=== PATIENT | female | born 1995 | race Caucasian/White ===

== ENCOUNTER 2016-06-15 01:58 | Emergency (ER) | payer OTHER ==
[2016-06-15] MEDS ORDERED: ONDANSETRON HCL/PF 2 MG/ML VIAL IV ONE (02:17)
[2016-06-15] MEDS ORDERED: FAMOTIDINE 10 MG/ML VIAL IV ONE ×2 (02:17→02:22)
[2016-06-15] MEDS ORDERED: NORMAL SALINE 2,000 ML IV ONE (02:17)
[2016-06-15] MEDS ORDERED: SUCRALFATE 1 G/10 ML UDC PO ONE (02:18)
[2016-06-15] MEDS ORDERED: ONDANSETRON HCL/PF 2 MG/ML VIAL ONE (02:21)
--- NOTE | 2016-06-15 02:23 | ERNOTE ---
Medical Problem HPI - Narrative Date of Service: 06/15/16 - General Chief Complaint: Nausea/Vomiting Time Seen by Provider: 06/15/16 02:14 Source: patient Exam Limitations: no limitations - Immun/Allergies/Home Medications Immunizations: IMMUNIZATION HX Immunizations Up to Date No History of Influenza Vaccine No Hx Pneumococcal Vaccination No Allergies/Adverse Reactions: Allergies No Known Drug Allergies Allergy (Verified 06/15/16 02:08) Home Medications: HOME MEDICATIONS Famotidine [Pepcid AC] 20 mg PO DAILY #30 tab 06/15/16 [Last Taken Unknown] Ondansetron [Zofran Odt] 4 mg PO Q6H PRN #12 tab 06/15/16 [Last Taken Unknown] Promethazine HCl [Phenergan Suppository] 25 mg RC Q6H PRN #20 supp.rect [Last Taken Unknown] Promethazine HCl [Phenergan] 25 mg PO QID PRN 06/15/16 [Last Taken 06/15/16 01: 00] Sucralfate [Carafate Suspension] 1 g PO BID #20 udc 06/15/16 [Last Taken Unknown ] - History of Present History Narrative: Patient comes due to vomiting. Patient reported she has been having a lot problems with gastritis. Patient also reported a ringing on her ears. Patient with no Hx of Tx, no headache, no abdominal pain, and with no Hx of vomiting blood. Timing: intermittent Severity: moderate Modifying Factors - (Improves): Present: other - nothing Modifying Factors - (Worsens): Present: movement Review of Systems - Review of Systems Constitutional: Present: no symptoms reported EYE: Present: no symptoms reported ENT: Present: no symptoms reported Respiratory: Present: no symptoms reported Cardiology: Present: no symptoms reported Gastrointestinal/Abdominal: Present: nausea, vomiting. Absent: diarrhea, constipation, abdominal pain, eating less, drinking less Genitourinary: Present: no symptoms reported Musculoskeletal: Present: no symptoms reported Skin: Present: no symptoms reported Neurological: Present: no symptoms reported Endocrine: Present: no symptoms reported Hematologic/Lymphatic: Present: no symptoms reported Psych: Present: no symptoms reported All Other Systems: All systems neg except as marked - Patient's Past Medical History Patient History - Medical: Migraines Patient History - Cancer: No Hx of Cancer Patient History - Surgical Procedures: No surgical history Patient History - Other: None LMP (females 10-50): 2 weeks ago - Social History Living Situations: home Psych History: Hx of Anxiety, Hx of Depression Smoking Status: Former smoker Have you smoked in the past 12 months: No Alcohol Use: occasionally Drug Use: none - Immunizations Immunizations Up to Date: No Hx Pneumococcal Vaccination: No History of Influenza Vaccine: No Physical Exam - Physical Exam General Appearance: Present: wd/wn, alert, no apparent distress Ears, Nose, Throat: Present: normal ENT inspection, hearing grossly normal, normal pharynx Neck: Present: normal inspection, nontender Respiratory: Present: no respiratory distress, normal breath sounds, no accessory muscle use, chest nontender, lungs clear Cardiovascular/Chest: Present: regular rate, rhythm, no murmur, normal peripheral pulses Gastrointestinal/Abdominal: Present: normal bowel sounds. Absent: tenderness, distended, guarding, rebound, McBurney sign, Obturator sign, Millard sign Back Exam: Present: normal inspection, normal range of motion, no CVA tenderness , no vertebral tenderness Extremity Exam: Present: normal inspection, non-tender, no edema, normal range of motion Neurological Exam: Present: alert, oriented, normal mood/affect, no motor/ sensory deficits Skin Exam: Present: normal color, warm/dry Lymphatic Exam: Present: no adenopathy ED Progress - Date and Time Seen: Date and Time: 06/15/16 03:18 Patient at the moment is feeling better. Patient with a non surgical abdomen. Patient will be given K and hydration has been achieved. - Results and Orders Patient's Lab Results:: I have reviewed the patient's lab results. Results and Orders: CBC: No elevation on WBC CMP: K is 3.4 Nga/Lip/AST/ALT: Normal UA: Normal - Vital Signs Patient's Vital Signs:: I have reviewed the patient's vital signs. Vital Signs: Vital Signs 06/15/16 02:02 Temperature 36.3 C L Pulse Rate 109 H Respiratory 18 Rate Blood Pressure 141/79 O2 Sat by Pulse 99 Oximetry - Progress/Reassessment Chief Complaint: Nausea/Vomiting - Transfer of Care Expected Disposition: Discharge Departure - Departure Clinical Impression: Vomiting Qualifiers: Vomiting type: unspecified Vomiting Intractability: unspecified Nausea presence : unspecified Qualified Code(s): R11.10 - Vomiting, unspecified Gastritis Qualifiers: Gastritis type: unspecified gastritis Chronicity: acute Gastritis bleeding: without bleeding Qualified Code(s): K29.00 - Acute gastritis without bleeding Disposition: Home self-care Condition: Stable Instructions: Gastritis, Adult, Sdmg-me-Eygr, Hypokalemia Prescriptions: Famotidine [Pepcid AC] 20 mg PO DAILY #30 tab Ondansetron [Zofran Odt] 4 mg PO Q6H PRN #12 tab PRN Reason: Nausea Promethazine HCl [Phenergan Suppository] 25 mg RC Q6H PRN #20 supp.rect PRN Reason: Nausea Sucralfate [Carafate Suspension] 1 g PO BID #20 udc
[2016-06-15 02:33] LABS: Hematocrit 37.9 % (37.0-47.0); Hemoglobin 13.2 gm/dL (12.5-16.0); Mean Cell Volume 88.8 fl (78-100); Mean Corpuscular Hemoglobin 30.9 pg (27-31); Mean Corpuscular Hgb Conc 34.8 g/dl (32-36); Mean Platelet Volume 9.8 fl (6.0-9.5); Neutrophil # 7.1 K/mm3 (1.3-6.0); Neutrophil % 76.8 % (42-75.0); Platelet Count 236 K/mm3 (150-450); Red Blood Count 4.27 M/mm3 (4.2-5.4); White Blood Count 9.2 K/mm3 (4.0-10.5)
--- OUTSIDE RECORDS SUMMARY | 2016-06-15 02:39 | XMS REPORT | Continuity of Care Document ---
:1995 Author Organization [facility] ([facility]) Address [address] [place] [address] Phone [phone] Care Team Providers Name Role Phone Rodolfo Bermudez Primary Care Provider [phone] Source Comments This disclosure is being made pursuant to the Care Everywhere program, applicable federal and state laws, and may not contain all informaitonavailable regarding this patient.[facility] ([facility]) Active Allergies and Adverse Reactions Allergen Noted Date Severity Reactions Comments Nickel 06/04/2011 Rash Current Medications Prescription Sig. Disp. Refills Start Date End Date Status amitriptyline 25 mg Take 1 Tab by mouth at 30 Tab 11 06/20/2011 Active tablet bedtime. Indications: chronic abdominal pain omeprazole 40 mg Take 2 Caps by mouth 180 Cap 3 08/28/2011 Active capsule daily. Indications: Gastroesophageal Reflux Active Problems Not on file Social History Tobacco Use Types Packs/Day Years Used Date Never Assessed Last Filed Vital Signs Vital Sign Reading Time Taken Blood Pressure 139/60 06/04/2011 12:55 PM LABORATORY SCIENTIST Pulse 117 06/04/2011 12:55 PM LABORATORY SCIENTIST Temperature 37.9 C (100.2 F) 06/04/2011 12:55 PM LABORATORY SCIENTIST Respiratory Rate 20 06/04/2011 12:55 PM LABORATORY SCIENTIST Height 1.671 m (5' 5.79") 06/04/2011 12:55 PM LABORATORY SCIENTIST Weight 53 kg (116 lb 13.5 oz) 06/04/2011 12:55 PM LABORATORY SCIENTIST Body Mass Index 18.98 06/04/2011 12:55 PM LABORATORY SCIENTIST Oxygen Saturation - - Plan of Care Health Maintenance Due Date Last Done Comments Hepatitis B Vaccine (1 of 3 - Primary Series) 1995 HPV Vaccine (1 of 3 - Female/Unknown 3 Dose Series) 2005 Tdap Vaccine 2005 Cervical Cancer Screening 01/08/2012 Lipid Disorder Screening 01/08/2012 MMR Vaccine 01/08/2012 Td Vaccine 01/08/2012 Varicella Vaccine (1 of 2 - Adult - No Evidence of 01/08/2012 Immunity) Influenza Vaccine: Seasonal (#1) 11/20/2015 Results from Last 3 Months Not on file
[2016-06-15 02:46] LABS: Albumin * 4.2 gm/dl (3.4-5.0); Anion Gap 17.3 mmol/L (6.8-13.8); BUN/Creatinine Ratio 14.9 (9.0-21.6); Bilirubin, Total 0.2 mg/dL (0.0-1.1); Calcium * 8.5 mg/dL (7.9-10.9); Carbon Dioxide 23.1 mmol/L (24-32.6); Potassium 3.4 mmol/L (3.4-4.6); Total Protein 7.6 gm/dL (6.2-8.2)
[2016-06-15 02:54] LABS: Urine Bilirubin Negative (NEGATIVE); Urine Blood Negative /ul (NEGATIVE); Urine Ketone 50 mg/dL (NEGATIVE); Urine Nitrite Negative (NEGATIVE); Urine Protein Negative (NEGATIVE); Urine Specific Gravity >=1.030 SP.GR. (1.005-1.010); Urine Urobilinogen Normal (NORMAL)
[2016-06-15 03:02] LABS: Urine Amorphous Sediment Few - 1+ (NONE-FEW); Urine Appearance Clear; Urine Bacteria None Seen; Urine Color Pale Yellow; Urine Mucus Moderate - 2+; Urine RBC 0-5 /hpf (0-5); Urine WBC 0-5 /hpf (0-5)
[2016-06-15] MEDS ORDERED: POTASSIUM CHLORIDE 20 MEQ TABLET.SA PO ONE (03:36)
[2016-06-15] MEDS ORDERED: POTASSIUM CHLORIDE 20 MEQ TABLET.SA ONE (03:46)
[2016-06-15 04:03] VITALS: BP 106/49
== END 2016-06-15 04:03 | disposition home or self-care (01) ==
LOC: ER 01:58 → MERGE 01:58 → ER 04:03
DX: R11.10 Vomiting, unspecified (principal); K29.00 Acute gastritis without bleeding

== ENCOUNTER 2016-08-29 19:06 | Emergency (ER) | payer BC, OTHER ==
[2016-08-29] MEDS ORDERED: ONDANSETRON 4 MG TAB.RAPDIS ONE (19:27)
[2016-08-29] MEDS ORDERED: KETOROLAC TROMETHAMINE 60 MG/2 ML VIAL IM ONE (19:27)
--- OUTSIDE RECORDS SUMMARY | 2016-08-29 19:29 | XMS REPORT | Continuity of Care Document ---
:1995 Author Organization [facility] ([facility]) Address [address] [place] [address] Phone [phone] Care Team Providers Name Role Phone Rodolfo Bermudez Primary Care Provider [phone] Source Comments This disclosure is being made pursuant to the Care Everywhere program, applicable federal and state laws, and may not contain all informaitonavailable regarding this patient.[facility] ([facility]) Active Allergies and Adverse Reactions Allergen Noted [...] Taken Blood Pressure 139/60 06/04/2011 12:55 PM FEATURES REPORTER Pulse 117 06/04/2011 12:55 PM FEATURES REPORTER Temperature 37.9 C (100.2 F) 06/04/2011 12:55 PM FEATURES REPORTER Respiratory Rate 20 06/04/2011 12:55 PM FEATURES REPORTER Height 1.671 m (5' 5.79") 06/04/2011 12:55 PM FEATURES REPORTER Weight 53 kg (116 lb 13.5 oz) 06/04/2011 12:55 PM FEATURES REPORTER Body Mass Index 18.98 06/04/2011 12:55 PM FEATURES REPORTER Oxygen Saturation - - Plan of Care [...]
[2016-08-29] MEDS: KETOROLAC TROMETHAMINE 60 MG/2 ML VIAL IM ONE (19:34)
[2016-08-29] MEDS: ONDANSETRON 4 MG TAB.RAPDIS PO ONE (19:34)
[2016-08-29 19:36] LABS: Hematocrit 36.2 % (37.0-47.0); Hemoglobin 12.5 gm/dL (12.5-16.0); Mean Cell Volume 89.6 fl (78-100); Mean Corpuscular Hemoglobin 30.9 pg (27-31); Mean Corpuscular Hgb Conc 34.5 g/dl (32-36); Neutrophil # 3.8 K/mm3 (1.3-6.0); Neutrophil % 67.5 % (42-75.0); Platelet Count 203 K/mm3 (150-450); Red Blood Count 4.04 M/mm3 (4.2-5.4); White Blood Count 5.7 K/mm3 (4.0-10.5)
[2016-08-29 19:49] LABS: Urine Bilirubin Negative (NEGATIVE); Urine Blood 25 /ul (NEGATIVE); Urine Ketone Negative (NEGATIVE); Urine Protein Negative (NEGATIVE); Urine Specific Gravity 1.025 SP.GR. (1.005-1.010); Urine Urobilinogen Normal (NORMAL)
--- NOTE | 2016-08-29 19:53 | ERNOTE ---
ER Female HPI Date of Service: 08/29/16 Stated Complaint: LT SIDE AND BACK PAIN Time Seen by Provider: 08/29/16 19:19 Source: patient Exam Limitations: no limitations Immunizations: IMMUNIZATION HX Immunizations Up to Date No History of Influenza Vaccine No Hx Pneumococcal Vaccination No Allergies/Adverse Reactions: Allergies No Known Drug Allergies Allergy (Verified 08/29/16 19:13) Home Medications: HOME MEDICATIONS Naproxen [Naprosyn] 500 mg PO BID PRN #60 tab 08/29/16 [Last Taken Unknown] Nortriptyline HCl [Pamelor] 20 mg PO DAILY 08/29/16 [Last Taken Unknown] Sulfamethoxazole/Trimethoprim [Bactrim Ds] 1 tab PO BID #28 tab 08/29/16 [Last Taken Unknown] Turmeric/Turmeric Ext/Pepr Ext [Turmeric Complex 500 mg Cap] 1 each PO DAILY 03/07 [Last Taken Unknown] - History of Present Illness Narrative: Pt. comes in with c/o L flank pain for a week and dysuria for three months. Pt. denies any prehospital treatment, alleviating factors, SOB, CP, or fevers. Pt. does state that she has nausea and vomiting for two weeks as well and states taht palpation or anything touching her flank exacerbates the pain. Review of Systems - Review of Systems Constitutional: Present: no symptoms reported. Absent: fever, chills, weakness , fatigue EYE: Present: no symptoms reported ENT: Present: no symptoms reported Respiratory: Present: no symptoms reported. Absent: shortness of breath, cough , wheezing Cardiology: Present: no symptoms reported. Absent: chest pain, palpitations, edema Gastrointestinal/Abdominal: Present: nausea, vomiting. Absent: abdominal pain Genitourinary: Present: frequency, pain, dysuria Musculoskeletal: Present: no symptoms reported. Absent: back pain, joint pain Skin: Present: no symptoms reported. Absent: rash, change in hair/nails Neurological: Present: no symptoms reported. Absent: headache, dizziness/light- headedness, numbness, tingling All Other Systems: All systems neg except as marked - Patient's Past Medical History Patient History - Medical: Migraines Patient History - Cardiac/Respiratory: No pertinent hx Patient History - Cancer: No Hx of Cancer Patient History - Surgical Procedures: No surgical history Patient History - Other: None - Social History Living Situations: home Psych History: Hx of Anxiety, Hx of Depression Patient requests Smoking Cessation Consult: No Initiate information on Smoking Cessation: No Alcohol Use: occasionally Drug Use: none - Immunizations Immunizations Up to Date: No Hx Pneumococcal Vaccination: No History of Influenza Vaccine: No Physical Exam - Physical Exam General Appearance: Present: wd/wn, no apparent distress Eye Exam: Normal inspection: bilateral, PERRL: bilateral, EOMI: bilateral Ears, Nose, Throat: Present: normal ENT inspection, normal pharynx Neck: Present: normal inspection, nontender. Absent: lymphadenopathy (R), lymphadenopathy (L) Respiratory: Present: no respiratory distress, normal breath sounds, no accessory muscle use, chest nontender, lungs clear Cardiovascular/Chest: Present: regular rate, rhythm, no murmur, normal peripheral pulses Gastrointestinal/Abdominal: Present: nontender Back Exam: Present: normal inspection, normal range of motion, no vertebral tenderness, CVA tenderness (L) Extremity Exam: Present: normal inspection, non-tender, normal range of motion, no edema Neurological Exam: Present: alert, oriented, normal mood/affect, no motor/ sensory deficits Skin Exam: Present: normal color, warm/dry. Absent: pallor, skin rash ED Progress - Results and Orders Patient's Lab Results:: I have reviewed the patient's lab results. - Vital Signs Patient's Vital Signs:: I have reviewed the patient's vital signs. Vital Signs: Vital Signs 08/29/16 19:09 Temperature 36.8 C Pulse Rate 74 Respiratory 18 Rate Blood Pressure 109/74 O2 Sat by Pulse 98 Oximetry - Progress/Reassessment Chief Complaint: Genitourinary Problem Progress:: Improved Departure Clinical Impression: UTI (urinary tract infection) Qualifiers: Urinary tract infection type: acute pyelonephritis Qualified Code(s): N10 - Acute pyelonephritis - Departure Disposition: Home self-care Condition: Good Instructions: Pyelonephritis, Adult Additional Instructions: Please follow up with primary provider in 2-3 days. Referrals: Nga Milan FNP [Primary Care Provider] - Prescriptions: Naproxen [Naprosyn] 500 mg PO BID PRN #60 tab PRN Reason: Pain Sulfamethoxazole/Trimethoprim [Bactrim Ds] 1 tab PO BID #28 tab
[2016-08-29 19:56] LABS: Albumin * 3.5 gm/dl (3.4-5.0); Anion Gap 12.3 mmol/L (6.8-13.8); BUN/Creatinine Ratio 16.5 (9.0-21.6); Bilirubin, Total 0.3 mg/dL (0.0-1.1); Ca. Corrected For Albumin 8.9 mg/dL (8.4-10.2); Calcium * 8.8 mg/dL (7.9-10.9); Carbon Dioxide 29.6 mmol/L (24-32.6); Potassium 3.9 mmol/L (3.4-4.6); Total Protein 6.3 gm/dL (6.2-8.2)
[2016-08-29 20:09] LABS: Urine Appearance Slightly Cloudy; Urine Bacteria 2+; Urine Color Yellow; Urine Nitrite Positive (NEGATIVE); Urine WBC 25-50 /hpf (0-5)
[2016-08-29 20:10] LABS: Urine Amorphous Sediment Few - 1+ (NONE-FEW); Urine Mucus Few - 1+
[2016-08-29] MEDS ORDERED: SULFAMETHOXAZOLE/TRIMETHOPRIM 1 TAB TABLET ONE (20:36)
[2016-08-29] MEDS: SULFAMETHOXAZOLE/TRIMETHOPRIM 1 TAB TABLET PO ONE (20:39)
[2016-08-29 21:13] VITALS: BP 98/61
== END 2016-08-29 20:51 | disposition home or self-care (01) ==
LOC: ER 19:06
DX: N10 Acute pyelonephritis (principal)